=== PATIENT | male | born 1945 | race Caucasian/White ===

== ENCOUNTER 2018-07-23 10:34 | Observation (INO) | payer OTHER ==
[2018-07-23] MEDS ORDERED: NS 1,000 ML IV ONE (10:38)
[2018-07-23 11:23] LABS: PLATELET COUNT 232 10^3/uL (150-400)
[2018-07-23 11:37] LABS: INR 0.93 (0.83-1.16); PROTIME(PATIENT) 12.7 SEC (12.0-15.0)
--- NOTE | 2018-07-23 11:50 | PDGENHP ---
History & Physical Chief Complaint: Wide-complex tachycardia History of Present Illness: 3 prior ablations in 2007 (left posterior accessory pathway, right posterior accessory pathway, and right midseptal accessory pathway). He presents today for EPS and posssible ablation. Relevant Physical Exam: S1S2 RRR, Respiratory exam CTA, pulses 2+ bilaterally, no edema, A&O x3 Cardiorespiratory Assessment: Proceed with EP study today
[2018-07-23] MEDS ORDERED: LIDOCAINE 1% 300 MG/30 ML SDV ONE (13:41)
[2018-07-23] MEDS ORDERED: HEPARIN 10,000 UNIT/10 ML MDV (1,000 UNIT/ML) ONE (13:41)
[2018-07-23] MEDS ORDERED: ISOPROTERENOL HCL/D5W 0.2 MG/50 ML BAG IV ONE (13:41)
[2018-07-23] MEDS ORDERED: BUPIVACAINE 0.75% 10 ML SDV ONE (13:42)
--- NOTE | 2018-07-23 13:57 | PDANEPAE ---
ANE History of Present Illness EP study and possible ablation for accessory pathway ANE Past Medical History - Pulmonary History Hx Oxygen in Use at Home: No Hx Sleep Apnea: No - Endocrine History Hx Diabetes: No Endocrine History Comment: gout - Chronic Pain History Chronic Pain: No ANE Review of Systems Review of Systems: - Exercise capacity Exercise capacity: >=4 METS - Pacemaker Pacemaker Type: Permanent Pacer/Defib Date Pacemaker Last Checked: 09/29/2015 ANE Patient History - Allergies Allergies/Adverse Reactions: indomethacin Allergy (Severe, Verified 10/03/15 09:09) Other-Enter Comments acetaminophen [From Tylenol] Allergy (Verified 07/16/18 11:37) Increases BP - Home Medications Home Medications: Allopurinol [Allopurinol 300 MG (RX)] 300 mg PO HS 07/16/18 [Last Taken 19:00] Meloxicam 15 mg PO HS 07/16/18 [Last Taken 07/22/18 19:00] - NPO status NPO Status: no food or drink >8 hours - Smoking Hx Smoking Status: Never smoked - Alcohol Use Alcohol Use: Rarely - Family Anes Hx Family Anes Hx: none ANE Labs/Vital Signs - Labs Result Diagrams: 07/23/18 11:10 07/23/18 11:10 - Vital Signs Height: 173 cm Weight: 99.8 kg ANE Physical Exam - Airway Neck exam: FROM Mallampati Score: Class 2 Mouth exam: normal dental/mouth exam - Pulmonary Pulmonary: no respiratory distress - Cardiovascular Cardiovascular: regular rate and rhythym - ASA Status ASA Status: II ANE Anesthesia Plan Anesthesia Plan: general endotracheal anesthesia
[2018-07-23] MEDS ORDERED: PROPOFOL/EMULSION 500 MG/50 ML BOTTLE IV ONE (14:01)
[2018-07-23] MEDS ORDERED: REMIFENTANIL HCL 1 MG VIAL ONE (14:01)
[2018-07-23] MEDS ORDERED: fentaNYL 100 MCG/2 ML INJ ONE (14:01)
[2018-07-23] MEDS ORDERED: DEXAMETHASONE 4 MG/ML VIAL ONE ×2 (14:03)
[2018-07-23] MEDS ORDERED: ONDANSETRON 4 MG/2 ML VIAL ONE (14:03)
[2018-07-23] MEDS ORDERED: ePHEDrine SULFATE 25 MG/5 ML SYR ONE (14:19)
[2018-07-23] MEDS ORDERED: PHENYLEPHRINE HCL 100 MCG/ML SYR ONE ×2 (14:25→14:55)
--- NOTE | 2018-07-23 15:54 | POSTANESTH ---
Post Anesthetic Evaluation Cardiovascular Status: Normal, Stable Respiratory Status: Normal, Stable Level of Consciousness/Mental Status: Can Participate in Eval Pain Control: Adequate, Prn Tx Ordered Nausea/Vomiting Control: Adequate, Prn Tx Ordered Complications Possibly Related to Anesthesia: None Noted
[2018-07-23] MEDS ORDERED: ONDANSETRON 4 MG/2 ML VIAL IVP PRN (15:55)
[2018-07-23] MEDS ORDERED: PROMETHAZINE HCL 25 MG/ML INJ IVP PRN (15:55)
[2018-07-23] MEDS ORDERED: DEXAMETHASONE 4 MG/ML VIAL IVP PRN (15:55)
[2018-07-23] MEDS ORDERED: LR 500 ML IV PRN (15:55)
[2018-07-23] MEDS ORDERED: PHENYLEPHRINE HCL 100 MCG/ML SYR IVP PRN (15:55)
[2018-07-23] MEDS ORDERED: HYDROCODONE/APAP 5/325 TAB PO PRN (15:55)
[2018-07-23] MEDS ORDERED: NALOXONE HCL 0.4 MG/ML INJ IVP PRN (15:55)
[2018-07-23] MEDS ORDERED: ALBUTEROL 3 ML DEYVIAL IH PRN (15:55)
[2018-07-23] MEDS ORDERED: oxyCODONE IR 5 MG TAB PO PRN (15:55)
[2018-07-23] MEDS ORDERED: ACETAMINOPHEN 500 MG TAB PO PRN (15:55)
[2018-07-23] MEDS ORDERED: METOCLOPRAMIDE 10 MG/2 ML VIAL IVP PRN (15:55)
[2018-07-23] MEDS ORDERED: fentaNYL 100 MCG/2 ML INJ IVP PRN (15:55)
[2018-07-23] MEDS ORDERED: Meloxicam [Meloxicam] 15 MG PO SCH (21:00)
[2018-07-23] MEDS ORDERED: ALLOPURINOL 300 MG TAB PO SCH (21:00)
--- NOTE | 2018-07-23 22:15 | CPEKG ---
Test Reason : OPEN Blood Pressure : / mmHG Vent. Rate : 070 BPM Atrial Rate : 070 BPM P-R Int : 117 ms QRS Dur : 198 ms QT Int : 499 ms P-R-T Axes : 040 109 -73 degrees QTc Int : 539 ms Sinus rhythm ventricular paced rhythm with evidence of preexcitation Nonspecific ST and T wave abnormality Confirmed by Mingo Ma ([id number]) on 07/23/2018 10:15:44 PM Referred By: Confirmed By:Mingo Ma
--- NOTE | 2018-07-23 23:02 | CPEKG ---
Test Reason : OPEN Blood Pressure : / mmHG Vent. Rate : 064 BPM Atrial Rate : 064 BPM P-R Int : 122 ms QRS Dur : 187 ms QT Int : 483 ms P-R-T Axes : 038 099 -77 degrees QTc Int : 499 ms Sinus rhythm with ventricular paced complexes and probable preexcitation Abnormal T, consider ischemia, lateral leads Confirmed by Mingo Ma ([id number]) on 07/23/2018 11:02:22 PM Referred By: Confirmed By:Mingo Ma
[2018-07-24 04:23] LABS: PLATELET COUNT 237 10^3/uL (150-400)
--- NOTE | 2018-07-24 06:33 | EPPROC ---
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 The right clavicular region, right groin, and left groin area were prepped and draped in the usual sterile manner. Anesthesiologist Dr. Octavio Jara administered general anesthesia. Appropriate non-invasive blood pressure, pulse oximetry and end-tidal CO2 monitoring was established. All catheters were placed percutaneously using the modified Seldinger technique , and advanced into position under fluoroscopic guidance. One #7 [place] deflectable octapolar electrode catheter was advanced to the His-bundle position via the left femoral vein (2mm spacing) and then to coronary sinus. One #7 [place] deflectable 20 pole catheter was advanced to the anteroseptal right ventricle via the R femoral vein. Programmed stimulation of the right atrium, right ventricle and coronary sinus ( left atrium) was performed. Nonsustained atrial tachycardia was induced. Programmed stimulation from the ventricle did not induce any sustained ventricular arrhythmias. Antegrade conduction was present over the accessory pathway, there was no retrograde conduction over accessory pathway. Mapping was done using octapolar catheter. Activation along the tricuspid annulus including midseptal area was late. Early activation was seen along the lateral mitral annulus ( via coronary sinus). Antegrade conduction persisted to 620 ms at baseline and 470 ms with isoproterenol 4 mcg/min. AVRT was not inducible (AV node conduction was absent). Therefore decision was made not to proceed with transseptal puncture and left atrial ablation. The catheters were removed. Vascular access sheaths were removed in the EP lab after placing subcutaneous pursestring suture. The patient was transferred to the cardiovascular holding area in stable condition. There were no apparent complications. CONCLUSIONS: 1. Left lateral accessory pathway, 3 prior failed ablations. AP conducted in antegrade direction only. AP is low risk for sudden cardiac . AP does not participate in reentrant tachycardia due to absent AV neema conduction (prior ablation procedure). 2. No ablation performed. 3. No apparent complications. Patient Problems: Problems Problem Status Onset Pneumonia Acute
[2018-07-24 07:58] VITALS: BP 154/96
--- NOTE | 2018-07-24 10:35 | GDS ---
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 Twin Leos in the setting of wide complex tachycardia noted on recent device interrogation. Patient has a history of 3 prior ablations at an outside facility in 2007, including attempted ablation of his left posterior accessory pathway, right posterior accessory pathway, and right mid-septal accessory pathway. His 3rd ablation in 2007 resulted in complication of AV block with permanent pacemaker. EP study 07/23/2018 demonstrated AP conduction that is still present along with a left lateral accessory pathway. AP conducted in antegrade direction only. It is low risk for sudden cardiac and does not participate in re-entrant tachycardia due to absent AV neema conduction. No ablation was performed. There were no apparent complications. Patient reports feeling quite well this morning without any specific concerns. Groin site is clean and dry without any ecchymosis, redness, swelling, oozing, or warmth. Purse string suture removed. Patient is stable for discharge. PHYSICAL EXAMINATION: GENERAL: Patient is ambulating independently without lightheadedness, dizziness, palpitations, syncope, or near syncope. He denies chest discomfort or other associated symptoms. VITAL SIGNS: Blood pressure 154 /96, heart rate 87, SP02 95% on room air. CARDIOVASCULAR: Regular rate and rhythm. RESPIRATORY: Clear to auscultation. EXTREMITIES: Normal exam. Pulses 2+ bilaterally. Right groin site is clean and dry. Purse string suture removed. No oozing, redness, swelling, or warmth. DISCHARGE INSTRUCTIONS: 1. Groin precautions reviewed with patient and in detail. 2. Patient will return to work Saturday, July 30, 2018. 3. Patient will be cleared to fly at this time as his arrhythmia is low-risk. He will bring required paperwork to be completed in our office. 4. Patient will follow up Mingo Ma MD, and will follow up with Dr. Leos if he experiences any new or concerning symptoms in the future. /[id number]/MODL MTDD
--- NOTE | 2018-07-24 20:56 | CPEKG ---
Test Reason : OPEN Blood Pressure : / mmHG Vent. Rate : 084 BPM Atrial Rate : 087 BPM P-R Int : 182 ms QRS Dur : 166 ms QT Int : 442 ms P-R-T Axes : 048 -89 088 degrees QTc Int : 523 ms Atrial-sensed ventricular-paced rhythm Evidence of preexcitation on this EKG is no longer present Confirmed by Mingo Ma ([id number]) on 07/24/2018 8:55:41 PM Referred By: Confirmed By:Mingo Ma
== END 2018-07-24 10:15 | disposition home or self-care (01) ==
LOC: FCATH 10:34 → F2W 16:20
PROVIDERS: ADMIT Internal Medicine Cardiovascular Disease; ATTEND Internal Medicine Cardiovascular Disease
DX: R00.0 Tachycardia, unspecified (principal)
CPT/HCPCS: 93005; 93620; 93621; 93623; G0378; C1731; J1100; J1644; J2370; J2405; J2704; J3010